=== PATIENT | female | born 1955 | race Caucasian/White ===

== ENCOUNTER 2017-03-20 01:18 | Emergency (ER) | payer MEDICAID ==
[~2017-03-20] VITALS: Ht 167.6 cm; Wt 86.0 kg
[2017-03-20 06:45] VITALS: BP 118/77
[2017-03-20] MEDS ORDERED: MORPHINE SULFATE 10 MG/ML CPJ IM ONE (06:45)
[2017-03-20 07:31] LABS: CLARITY URINE CLEAR (CLEAR); COLOR URINE YELLOW (YELLOW); GLUCOSE URINE NEGATIVE (NEGATIVE); KETONES URINE NEGATIVE (NEGATIVE); LEUKOCYTE ESTERASE URINE NEGATIVE (NEGATIVE); NITRITE URINE NEGATIVE (NEGATIVE); OCCULT BLOOD URINE NEGATIVE (NEGATIVE); PROTEIN URINE NEGATIVE (NEGATIVE); SPECIFIC GRAVITY URINE 1.022 (1.005-1.030); UROBILINOGEN URINE 0.2 E.U./dL (0.2-1.0)
== END 2017-03-20 08:59 | disposition home or self-care (01) ==
LOC: ER 01:21
DX: M54.5 Low back pain (principal); M54.30 Sciatica, unspecified side; F17.210 Nicotine dependence, cigarettes, uncomplicated; E11.9 Type 2 diabetes mellitus without complications; Z98.1 Arthrodesis status
CPT/HCPCS: 72100; 81003; 96372; 99285; J2270